=== PATIENT | female | born 1980 | race Caucasian/White ===

== ENCOUNTER → 2021-05-23 18:46 | Outpatient (CLI) | payer BC, SELFPAY ==
[2021-05-23 20:20] LABS: Hemoglobin A1C 7.8 % (4.0-6.0)
[2021-05-23 20:38] LABS: Blood Urea Nitrogen 5 mg/dl (7-17); Calcium 10.1 mg/dl (8.4-10.2); Carbon Dioxide 25 mmol/L (22.0-30.0); Chloride 106 mmol/L (98-107); Estimated Glomerular Filt Rate 111 ml/min (>60); GFR (African American) 134 ML/MIN (>60); Glucose 127 mg/dl (74-100); Sodium 138 mmol/L (136-145)
[2021-05-25 12:30] LABS: C-Peptide 5.6 ng/mL (1.1-4.4)
== END ==
PROVIDERS: Visit Provider Emergency Medicine
DX: E11.9 Type 2 diabetes mellitus without complications (principal); E66.3 Overweight; Z79.84 Long term (current) use of oral hypoglycemic drugs; Z68.29 Body mass index [BMI] 29.0-29.9, adult
CPT/HCPCS: 80048; 83036; 84681

== ENCOUNTER → 2022-11-16 20:39 | Outpatient (CLI) | payer BC, SELFPAY ==
[2022-11-16 19:04] LABS: Basophils # 0.1 K/mm3 (0-0.2); Basophils % 0.5 % (0.1-2.0); Eosinophils # 0.4 K/mm3 (0.0-0.4); Eosinophils % 3.5 % (0.1-12.0); Hematocrit 47.9 % (37.0-47.0); Hemoglobin 15.6 g/dL (12.2-16.2); Lymphocytes # 3.8 K/mm3 (0.7-4.5); Lymphocytes % 32.5 % (10-50); Mean Corpuscular HGB Conc 32.6 g/dL (31.8-35.4); Mean Corpuscular Hemoglobin 31.5 pg (27.0-31.2); Mean Corpuscular Volume 96.7 fl (81-99); Mean Platelet Volume 9.8 fl (7.4-10.4); Monocytes # 0.7 K/mm3 (0.1-1.0); Monocytes % 5.8 % (1.7-9.3); Neutrophils # 6.7 K/mm3 (1.8-7.8); Neutrophils % 57.7 % (37.0-80.0); Platelet Count 318 K/mm3 (142-424); Red Blood Count 4.96 M/mm3 (4.20-5.40); Red Cell Distribution Width 13.3 % (11.5-17.5); White Blood Count 11.6 K/mm3 (4.8-10.8)
[2022-11-16 20:16] LABS: Hemoglobin A1C 7.5 % (4.0-6.0)
[2022-11-16 20:30] LABS: Alanine Aminotransferase 172 U/L (12-78); Albumin Level 4.6 g/dl (3.5-5.0); Albumin/Globulin Ratio 1.5 (1.1-1.8); Alkaline Phosphatase 117 U/L (38-126); Anion Gap 17.5 mEq/L (5-15); Aspartate Amino Transferase 192 U/L (14-36); Bilirubin,Total 0.6 mg/dl (0.2-1.3); Blood Urea Nitrogen 8 mg/dl (7-17); Calcium 9.4 mg/dl (8.4-10.2); Carbon Dioxide 23 mmol/L (22.0-30.0); Chloride 105 mmol/L (98-107); Chol/HDL Ratio 5.8 (1-3.5); Cholesterol 283 mg/dl (140-200); Estimated Glomerular Filt Rate 110 ml/min (>60); GFR (African American) 133 ML/MIN (>60); Globulin 3.1 g/dL (1.3-3.2); Glucose 136 mg/dl (74-100); HDL Cholesterol 49 mg/dl (40-60); Potassium 4.5 mmoL/L (3.5-5.1); Sodium 141 mmol/L (136-145); Total Protein,Serum 7.7 g/dl (6.3-8.2); Triglycerides 303 mg/dl (30-150); VLDL Cholesterol 61 mg/dL (0-40)
[2022-11-16 20:42] LABS: Direct LDL Cholesterol 185.16 mg/dL (100-129)
[2022-11-16 20:52] LABS: 25-OH Vitamin D, Total 18.8 ng/mL (30-100)
[2022-11-16 21:03] LABS: Thyroid Stimulating Hormone 1.85 uIU/mL (0.465-4.68)
[2022-11-16 21:42] LABS: Microalbumin/Creatinine Ratio 35.1
[2022-11-16 21:51] LABS: Creatinine,Urine Random 202 mg/dL (Not Estab.)
[2022-12-20 11:46] LABS: HBsAg Screen NEGATIVE; Hep A Ab, IGM NEGATIVE
[2022-12-20 11:47] LABS: HCV Ab NON REACTIVE; Hep B Core Ab, IgM NEGATIVE
== END ==
LOC: LAB.DROPOF 20:40
PROVIDERS: PCP Physician Assistant; Visit Provider Physician Assistant
DX: E11.9 Type 2 diabetes mellitus without complications (principal); E55.9 Vitamin D deficiency, unspecified; Z79.84 Long term (current) use of oral hypoglycemic drugs; Z79.899 Other long term (current) drug therapy
CPT/HCPCS: 80053; 80061; 80074; 82043; 82306; 82570; 83036; 84443; 85025

== ENCOUNTER → 2022-11-17 13:15 | Outpatient (CLI) | payer BC, SELFPAY | LOC: LAB.DROPOF 06-21 13:16 | PROVIDERS: PCP Physician Assistant; Visit Provider Physician Assistant | DX: R79.89 Other specified abnormal findings of blood chemistry (principal); R74.01 Elevation of levels of liver transaminase levels | CPT/HCPCS: 80074 ==

== ENCOUNTER 2023-06-08 08:00 | Outpatient (RCR) | payer BC, SELFPAY | END 2023-06-08 09:15 | disposition home or self-care (01) | LOC: OT 08:00 | PROVIDERS: PCP Physician Assistant; Visit Provider Nurse Practitioner Family | DX: M25.511 Pain in right shoulder (principal) | CPT/HCPCS: 97010; 97014; 97140; 97165; 97530; G0283 ==

== ENCOUNTER 2024-10-24 15:17 | Outpatient (CLI) | payer BC, SELFPAY ==
[2024-10-24 18:37] LABS: Basophils # 0.1 K/mm3 (0-0.2); Basophils % 0.9 % (0.1-2.0); Eosinophils # 0.4 Kmm3 (0.0-0.4); Eosinophils % 3.6 % (0.1-12.0); Hematocrit 42.8 % (37.0-47.0); Hemoglobin 14.6 g/dL (12.2-16.2); Immature Granulocytes # 0.04 10^3uL; Immature Granulocytes % 0.3 %; Lymphocytes # 4.2 K/mm3 (0.7-4.5); Lymphocytes % 34.9 % (10-50); Mean Corpuscular HGB Conc 34.1 g/dL (31.8-35.4); Mean Corpuscular Hemoglobin 32.1 pg (27.0-31.2); Mean Corpuscular Volume 94.1 fl (81-99); Mean Platelet Volume 11.6 fl (7.4-10.4); Monocytes # 0.7 K/mm3 (0.1-1.0); Monocytes % 5.9 % (1.7-9.3); Neutrophils # 6.6 K/mm3 (1.8-7.8); Neutrophils % 54.4 % (37.0-80.0); Nucleated Red Blood Cells # 0 10^3/uL; Nucleated Red Blood Cells % 0 %; Platelet Count 226 K/mm3 (142-424); Red Blood Count 4.55 M/mm3 (4.20-5.40); Red Cell Distribution Width 11.9 % (11.5-17.5); Red Cell Distribution Width-SD 41.2 fL; White Blood Count 12.1 K/mm3 (4.8-10.8)
[2024-10-24 19:09] LABS: Hemoglobin A1C 8.3 % (4.0-6.0)
[2024-10-24 19:10] LABS: Alanine Aminotransferase 116 U/L (12-78); Albumin Level 4.4 g/dl (3.5-5.0); Albumin/Globulin Ratio 1.6 (1.1-1.8); Alkaline Phosphatase 83 U/L (38-126); Anion Gap 6.2 mEq/L (5-15); Aspartate Amino Transferase 134 U/L (14-36); Bilirubin,Total 0.7 mg/dl (0.2-1.3); Blood Urea Nitrogen 15 mg/dl (7-17); Calcium 9.3 mg/dl (8.4-10.2); Carbon Dioxide 24 mmol/L (22.0-30.0); Chloride 111 mmol/L (98-107); Chol/HDL Ratio 7.7 (1-3.5); Cholesterol 270 mg/dl (140-200); Estimated Glomerular Filt Rate 109 ml/min (>60); GFR (African American) 131 ML/MIN (>60); Globulin 2.7 g/dL (1.3-3.2); Glucose 137 mg/dl (74-100); HDL Cholesterol 35 mg/dl (40-60); Potassium 4.2 mmoL/L (3.5-5.1); Sodium 137 mmol/L (136-145); Total Protein,Serum 7.1 g/dl (6.3-8.2)
[2024-10-24 19:11] LABS: Triglycerides 491 mg/dl (30-150)
[2024-10-24 19:21] LABS: Direct LDL Cholesterol 163.78 mg/dL (100-129)
== END 2024-10-24 23:59 | disposition home or self-care (01) ==
LOC: LAB.DROPOF 10-27 10:30
PROVIDERS: PCP Nurse Practitioner Family; Visit Provider Nurse Practitioner Family
DX: E11.22 Type 2 diabetes mellitus with diabetic chronic kidney disease (principal); N18.1 Chronic kidney disease, stage 1
CPT/HCPCS: 80053; 80061; 82306; 83036; 84443; 85025

== ENCOUNTER 2024-11-13 07:46 | Outpatient (CLI) | payer BC, SELFPAY ==
--- NOTE | 2024-11-13 08:00 | MM_ITS ---
PROCEDURE INFORMATION: Exam: MG Bilateral Screening 3D Mammography Exam date and time: 11/13/2024 7:56 AM Age: 44 years old Clinical indication: Screening exam. TECHNIQUE: Imaging protocol: Bilateral Screening tomosynthesis and 2D mammography including computer-aided detection (CAD) when performed. COMPARISON: No relevant prior studies available. FINDINGS: MAMMOGRAPHY: Breast composition: There are scattered areas of fibroglandular density. Mass: No suspicious masses. Architectural distortion: None. Calcifications: No suspicious calcifications. Asymmetric density: None. Skin thickening: None. Axillary adenopathy: None. IMPRESSION: No mammographic evidence of malignancy. Annual screening is recommended unless otherwise clinically indicated. ASSESSMENT: BI-RADS Category 1: Negative.
== END 2024-11-13 23:59 | disposition home or self-care (01) ==
LOC: RAD 07:47
PROVIDERS: PCP Nurse Practitioner Family; Visit Provider Nurse Practitioner Family
DX: Z12.31 Encounter for screening mammogram for malignant neoplasm of breast (principal); R92.323 Mammographic fibroglandular density, bilateral breasts
CPT/HCPCS: 77063; 77067